=== PATIENT | male | born 1995 | race African-American/Black ===

== ENCOUNTER 2020-12-16 18:36 | Emergency (ER) | payer MEDICAID, OTHER ==
[~2020-12-16] VITALS: Ht 175.3 cm; Wt 73.0 kg
[2020-12-16] MEDS ORDERED: LIDOCAINE 1%/EPI 1:100,000 10 ML VIAL IJ ONE (19:30)
[2020-12-16] MEDS ORDERED: IBUPROFEN 800MG TABLET PO ONE (20:00)
[2020-12-16 20:10] VITALS: BP 125/74
== END 2020-12-16 20:15 | disposition home or self-care (01) ==
LOC: ER 18:36
DX: S01.01XA Laceration without foreign body of scalp, initial encounter (principal); V89.2XXA Person injured in unspecified motor-vehicle accident, traffic, initial encounter; Y93.89 Activity, other specified; Y92.9 Unspecified place or not applicable
CPT/HCPCS: 12001; 99283; J3490